=== PATIENT | female | born 1985 | race Caucasian/White ===

== ENCOUNTER 2017-12-02 06:37 | Inpatient (IN) | payer BC ==
[2017-12-02] VITALS (17 sets, daily range): BP systolic 101–132; BP diastolic 44–73; PULSE 63–111; TEMP 97.7–98.6
[~2017-12-02] VITALS: Ht 155 cm; Wt 98.2 kg
[~2017-12-02 06:37] MED LIST: BENADRYL25 M2 PO; FERROUS SU325 MG/TAB PO; MOTRIN 600600 MG/TAB PO; PERCOCET 325 MG1 TA2 PO; PRENATAL 19 CH1 EACH PO
[2017-12-02 10:43] LABS: BASO # 0.1 (0.0-0.2); BASO % 0.5 % (0.0-2.0); EOS % 0.3 % (0-4.0); GRAN # 8.2 (1.4-6.5); GRAN % 74.3 % (42.2-75.2); HEMOGLOBIN 10.8 g/dl (12.5-16.0); LYMPH # 1.9 (1.2-3.4); LYMPH % 16.7 % (20.0-51.0); MEAN CELL VOLUME 81 fl (80.0-100.0); MEAN CORPUSCULAR HEMOGLOBIN 27 pg (27.0-31.0); MEAN CORPUSCULAR HGB CONC 33 g/dl (33.0-37.0); MEAN PLATELET VOLUME 9.3 fl (7.4-10.4); MONO # 0.8 (0.1-0.6); MONO % 7.2 % (1.7-9.3); PLATELET COUNT 335 K/mm3 (130-400); REDCELL DISTRIBUTION WIDTH-CV 14.1 % (11.5-14.5)
[2017-12-02 10:48] LABS: HEMATOCRIT 32.4 % (37.0-47.0)
[2017-12-03] VITALS: BP 110/61; PULSE 68; TEMP 98.5
[2017-12-03 07:44] LABS: HEMOGLOBIN 10.7 g/dl (12.5-16.0)
[2017-12-03 07:47] LABS: HEMATOCRIT 32.4 % (37.0-47.0)
[2017-12-03 08:40] VITALS: BP 125/61; PULSE 60; TEMP 97.3
[2017-12-03] MEDS ORDERED: PERCOCET 325 MG1 TA2 PO (12:50)
[2017-12-03] MEDS ORDERED: IBU600 MG PO (12:50)
[2017-12-03 15:45] VITALS: BP 103/59; PULSE 75; TEMP 97.1
[2017-12-03 20:30] VITALS: BP 125/67; PULSE 76; TEMP 98.6
[2017-12-04 08:45] VITALS: BP 139/80; PULSE 68
== END 2017-12-04 15:50 | disposition home or self-care (01) | DRG 785 ==
LOC: LDR 06:37 → OB 09:24
PROVIDERS: Obstetrics & Gynecology
PROC: 10D00Z1 Extraction of Products of Conception, Low, Open Approach (ICD-10-PCS; principal; 2017-12-02)
PROC: 0UT70ZZ Resection of Bilateral Fallopian Tubes, Open Approach (ICD-10-PCS; 2017-12-02)
DX: O34.211 Maternal care for low transverse scar from previous cesarean delivery (principal); Z3A.39 39 weeks gestation of pregnancy; Z37.0 Single live birth; Z40.03 Encounter for prophylactic removal of fallopian tube(s); O99.214 Obesity complicating childbirth; O99.02 Anemia complicating childbirth
CPT/HCPCS: J0690; J1885; J2370; J2405; J3010; J7120

== ENCOUNTER 2022-04-11 06:34 | Emergency (ER) | payer BC ==
[~2022-04-11] VITALS: Ht 165.1 cm; Wt 108.2 kg
[~2022-04-11 06:34] MED LIST changes: +IBU600 MG PO
[2022-04-11 06:36] VITALS: TEMP 98.5
[2022-04-11 07:01] LABS: HEMATOCRIT 43.5 % (37.0-47.0); HEMOGLOBIN 14.1 g/dl (12.5-16.0); MEAN CELL VOLUME 92 fl (80.0-100.0); MEAN CORPUSCULAR HEMOGLOBIN 30 pg (27-31); MEAN CORPUSCULAR HGB CONC 32 g/dl (33.0-37.0); MEAN PLATELET VOLUME 9.7 fl (7.4-10.4); PLATELET COUNT 191 K/mm3 (130-400); RED BLOOD COUNT 4.75 M/mm3 (4.10-5.30); REDCELL DISTRIBUTION WIDTH-CV 12.3 % (11.5-14.5)
[2022-04-11 07:17] LABS: TROPONIN-I 0.034 ng/mL (0.00-0.033)
[2022-04-11 07:23] LABS: ALANINE AMINOTRANSFERASE 80 U/L (0-55); ALBUMIN 3.3 gm/dL (3.5-5.0); ALKALINE PHOSPHATASE 45 U/L (40-150); ANION GAP 16 mmol/L (7-16); AST,SGOT 79 U/L (5-34); BAND 2 % (0-10); BILIRUBIN,TOTAL 0.5 mg/dL (0.2-1.2); BLOOD UREA NITROGEN 16 mg/dL (7-19); CALCIUM 8.5 mg/dL (8.4-10.2); CHLORIDE 108 mmol/L (98-107); CREATININE, serum 1.04 mg/dL (0.57-1.11); EOSINOPHIL 1 % (0-4); GLUCOSE 203 mg/dL (70-99); MAGNESIUM 2.5 mg/dL (1.6-2.6); NEUTROPHILS 47 % (42.0-75.2); PHOSPHOROUS 4.7 mg/dL (2.3-4.7); POTASSIUM 4.4 mmol/L (3.5-4.5); SODIUM 137 mmol/L (136-145); TOTAL PROTEIN 6.9 gm/dL (6.2-8.1)
[2022-04-11 07:24] LABS: LYMPHOCYTE 44 % (20.0-51.0); PLATELET ESTIMATE NORMAL (NORMAL)
[2022-04-11 07:26] LABS: ALCOHOL(ethanol),MEDICAL < 10 mg/dL (0-10); SALICYLATE < 5.0 mg/dL (15.0-30.0)
[2022-04-11 07:27] LABS: CARBON DIOXIDE 13 mmol/L (22-29)
[2022-04-11] MEDS ORDERED: APRI 0.15 MG-0.1 TAB PO (07:29)
--- NOTE | 2022-04-11 08:22 | NUR ---
Dental Laboratory Supervisor swine nutritionist: Dental Laboratory Supervisor received call from ER staff at 0637. Dental Laboratory Supervisor arrived at ER at 0720. Background: ER staff were providing care to Patient. Patient's Desean was in waiting room with Patient's boss who is also like a father-figure to her. He is a Dentist. She works for him as a dental hygienist. A family friend had taken their two kids to friend's home. Dental Laboratory Supervisor encouraged the and the Dentist to move back to the family waiting room in the ER for the sake of privacy. Dental Laboratory Supervisor provided prayer and supportive listening. The Dentist called Pastor Bullock who is a family friend of his and the 's. The had already called Patient's Parents. They are traveling from [place]. The of the one who is babysitting arrived to sit with Desean ( of Patient) as well. Update from Disbursing Officer was that Patient was stabilized enough to move to [place]. Pastor Muñoz arrived. Dental Laboratory Supervisor provided coffee and water to the four men (Patient ; [employer] Toni; Dentist; and of the one babysitting Patient's children). This Dental Laboratory Supervisor updated the weekday hospital Dental Laboratory Supervisor who will be available to family throughout the day as needed. This Dental Laboratory Supervisor updated ER staff as to the arrival of the family's [employer]er/Friend and this Dental Laboratory Supervisor doing a "shift change brief" with the hospital Dental Laboratory Supervisor.
[2022-04-11 08:28] LABS: ARTERIAL BLD GAS O2 SATURATION 94.4 % (92-100); ARTERIAL BLD GAS TCO2 CT 16.1; ARTERIAL BLOOD GAS BASE EXCESS -17.2 (-2-2); ARTERIAL BLOOD GAS HCO3 14.3 meq/L (22-26); ARTERIAL BLOOD GAS PCO2 58.9 mmHg (35-45); ARTERIAL BLOOD GAS PO2 102.4 mmHg (80-100)
[2022-04-11 09:24] LABS: ARTERIAL BLD GAS O2 SATURATION 96.2 % (92-100); ARTERIAL BLOOD GAS BASE EXCESS -13.1 (-2-2); ARTERIAL BLOOD GAS PCO2 64.1 mmHg (35-45); ARTERIAL BLOOD GAS PO2 109.1 mmHg (80-100); ARTERIAL BLOOD GAS pH 7.07 (7.35-7.45)
--- NOTE | 2022-04-11 09:26 | NUR ---
SW met with patients Desean along with other family members in family room along with ER physician and House Sup. Carol. Anton and supports provided update.
[2022-04-11 09:47] LABS: PARTIAL THROMBOPLASTIN TIME 91.8 SECONDS (26.0-37.0)
[2022-04-11 09:48] LABS: INR 3.5 (0.8-3.0); PROTHROMBIN TIME 41.1 SECONDS (9.7-12.8)
[2022-04-11 10:32] LABS: ARTERIAL BLD GAS O2 SATURATION 99.4 % (92-100); ARTERIAL BLD GAS TCO2 CT 20.3; ARTERIAL BLOOD GAS BASE EXCESS -7.4 (-2-2); ARTERIAL BLOOD GAS PCO2 41.7 mmHg (35-45); ARTERIAL BLOOD GAS pH 7.28 (7.35-7.45)
[2022-04-11 10:33] LABS: ARTERIAL BLOOD GAS PO2 218.7 mmHg (80-100)
--- NOTE | 2022-04-11 10:34 | NUR ---
Desean updated and provided the room number the patient will be going to along with map of [facility]
[2022-04-11 11:30] VITALS: BP 138/79; PULSE 110
[2022-04-11 11:59] LABS: COLLECTION METHOD IN
[2022-04-11 12:10] LABS: SQUAMOUS EPITHELIAL None Seen /hpf (0-10); URINE BACTERIA Rare /hpf (NONE SEEN); URINE RBC >50 /hpf (0-2)
[2022-04-11 12:13] LABS: URINE APPEARANCE Hazy (CLEAR/HAZY); URINE BLOOD 3+ (NEGATIVE); URINE COLOR OTHER (YELLOW); URINE GLUCOSE 1+ (NEGATIVE); URINE KETONE Negative (NEGATIVE); URINE NITRATE Negative (NEGATIVE); URINE PROTEIN(semi-quant) 2+ (NEGATIVE); URINE UROBILINOGEN 0.2 E.U/dL (0.2-1.0)
== END 2022-04-11 11:30 | disposition short-term general hospital (02) ==
LOC: COL.ER 06:34
PROVIDERS: Emergency Medicine; Family Medicine
DX: I46.9 Cardiac arrest, cause unspecified (principal); J96.01 Acute respiratory failure with hypoxia; I26.99 Other pulmonary embolism without acute cor pulmonale; R41.82 Altered mental status, unspecified; E87.20 Acidosis, unspecified; J18.9 Pneumonia, unspecified organism; I51.9 Heart disease, unspecified; E87.29 Other acidosis; R77.8 Other specified abnormalities of plasma proteins; R74.8 Abnormal levels of other serum enzymes; R79.1 Abnormal coagulation profile; Z20.822 Contact with and (suspected) exposure to COVID-19
CPT/HCPCS: J0171; J0282; J0692; J1644; J2250; J2310; J3101; J7030; J7040; J7060; Q9967